=== PATIENT | male | born 1960 | race Caucasian/White ===

== ENCOUNTER 2020-04-14 08:29 | Emergency (ER) | payer MEDICARE, MEDICAID ==
[~2020-04-14] VITALS: Ht 175.3 cm; Wt 90.9 kg
[2020-04-14 08:55] VITALS: BP 136/98
[2020-04-14] MEDS ORDERED: ketorolac trometh. 30mg/ml inj. IM ONE (09:05)
== END 2020-04-14 10:03 | disposition home or self-care (01) ==
LOC: ER 08:29
DX: G89.29 Other chronic pain (principal); M54.5 Low back pain; Z88.0 Allergy status to penicillin
CPT/HCPCS: 99281